=== PATIENT | male | born 1965 | race Caucasian/White ===

== ENCOUNTER 2021-05-20 14:33 | Emergency (ER) | payer MEDICARE, OTHER ==
[~2021-05-20] VITALS: Ht 172.7 cm; Wt 104.5 kg
[~2021-05-20 14:33] MED LIST: ALLO300T PO; ALPR0.5T PO; AMLO-187 PO; ASPI-482 PO; ATORVASTATIN CA80 MG PO; CLOP75TA PO; CRESTOR40 MG PO; DOCU100C28 PO; FISH1CAP PO; GEMF-24 PO; HYDR-2145 PO; INSU100V13 SQ; INSU100V31 SQ; INSU100V9 SQ; LIRA0.6P2 SQ; LOSA100T14 PO; MELA5TAB PO; METF10007 PO; METO-247 PO; MULT-18 PO; OXYC1TAB20 PO; PANT40TA6 PO; SENN1TAB61 PO
--- NOTE | 2021-05-20 15:44 | PHYS DOC ---
Past History Past Medical History: Angina, Anxiety, Arthritis, CAD, Constipation, CVA, Diabetes, High Cholesterol, Heart Disease, Hypertension, DC, Renal Failure, Other Past Surgical History: Appendectomy Additional Past Surgical Histo: RT SIDED KIDNEY TRANSPLANT, AORTIC VALVE REPLACEMENT Alcohol Use: None Drug Use: None Adult General Chief Complaint Chief Complaint: NAUSEA/VOMITING/DIARRHEA HPI HPI Patient is a 55-year-old male who presents with emergency department complaining of nausea vomiting and diarrhea since Thursday. Patient states he thinks he had bad food Thursday, woke up at approximately midnight Thursday night into Thursday with loose watery brown diarrhea spells approximately every 30 minutes until 7 AM. Patient denies seeing blood in his stool, patient reports approximately Thursday around noon he started vomiting, had 3-4 vomiting spells noticing food particles, denies seeing blood in his vomitus. Patient states he took 2 Imodium's Thursday followed by 2 more Thursday evening, has not had any further diarrhea spells nor vomiting spells this morning. Has been eating bananas rice applesauce and toast without return of vomiting. Patient reports he feels some nausea and generalized abdominal discomfort but cannot pinpoint a specific area of abdominal pain. Patient is u nable to articulate a pain number stating that just feels a little uncomfortable now. Patient denies chest pains, shortness of breath, chest or nasal congestion, dizziness, fever or chills, denies throat discomfort, cough, ear pain, headaches, syncopal or near syncopal episodes. Patient reports his chief complaint at this time is weakness. Patient states he is a type II diabetic, history of hypertension, BPH, had a kidney transplant in September 2019 related to end-stage renal disease, was a former hemodialysis patient, has had no problems since his kidney was transplanted. Patient denies other physical complaints or physical concerns. Review of Systems Review of Systems 14 body systems of review of systems have been reviewed. See HPI for pertinent positives and negative responses, otherwise all other systems are negative, nonpertinent or noncontributory. Constitutional: Negative except as outlined in HPI above. Skin: Negative except as outlined in HPI above. Eyes: Negative except as outlined in HPI above. HENT: Negative except as outlined in HPI above. Respiratory: Negative except as outlined in HPI above. Cardiovascular: Negative except as outlined in HPI above. GI: Negative except as outlined in HPI above. : Negative except as outlined in HPI above. Musculoskeletal: Negative except as outlined in HPI above. Integument: Negative except as outlined in HPI above. Neurologic: Negative except as outlined in HPI above. Endocrine: Negative except as outlined in HPI above. Lymphatic: Negative except as outlined in HPI above. Psychiatric: Negative except as outlined in HPI above. Current Medications Current Medications Patient reported current medication list: Vitamin D 2 tabs every morning, carvedilol 25 mg twice daily, pantoprazole 40 mg twice daily, gabapentin 600 mg twice daily, prednisone 5 mg nightly, allopurinol 300 mg nightly, atorvastatin 400 mg 2 tablets nightly, tamsulosin 0.4 mg nightly, losartan 50 mg nightly, alprazolam 0.5 mg nightly and as needed, melatonin 10 mg nightly, Xarelto 20 mg every morning, oxycodone 10 mg 1 tablet up to 3 times daily daily, alprazolam 0.5 mg 1 tablet up to 3 times daily. Allergies Allergies Allergies Coded Allergies Type Severity Reaction Last Updated Verified nitroglycerin Allergy Intermediate Hives 05/20/21 Yes colchicine Adverse Reaction Intermediate Nausea and Vomiting 05/20/21 Yes Physical Exam Physical Exam Constitutional: Well developed, well nourished, no acute distress, non-toxic appearance. 55-year-old male in no apparent distress. HENT: Normocephalic, atraumatic. Oral mucosa pink, moist, oropharynx pink, none rythematous, no deep tissue infectious process appreciated, patient speaking in normal voice tones, no lymphadenopathy of the head or neck appreciated, bilateral TMs within normal limits and intact. Eyes: Conjunctiva normal, no discharge. Neck: Normal range of motion, no stridor. Cardiovascular: No cyanosis appreciated, distal cap refill less than 2 seconds. Heart sounds S1-S2 to auscultation, regular rate and rhythm. Lungs & Thorax: Patient is in no respiratory distress, no audible adventitious lung sounds appreciated. Lung sounds clear to auscultation all lung gallego. Normal work of breathing. Abdomen: Generalized tenderness to palpation all 4 quadrants, hypoactive bowel sounds. No skin discoloration of the abdomen present, no masses no megaly appreciated. Skin: Warm, dry, no erythema, no rash. Back: No tenderness, no deformities. Extremities: No tenderness, no cyanosis, no clubbing, ROM intact, no edema. Neurologic: Alert and oriented X 3, normal motor function, normal sensory function, no focal deficits noted. Psychologic: Affect normal, judgement normal, mood normal. Current Patient Data Vital Signs Vital Signs Date Time Temp Pulse Resp B/P (MAP) Pulse Ox O2 Delivery O2 Flow Rate FiO2 05/20/21 15:01 99.0 75 18 108/66 (80) 100 Room Air EKG EKG [] Radiology/Procedures Radiology/Procedures [] Heart Score C/O Chest Pain: No Risk Factors: Risk Factors: DM, Current or recent (<one month) smoker, HTN, HLP, family history of CAD, obesity. Risk Scores: Risk Factors: DM, Current or recent (<one month) smoker, HTN, HLP, family history of CAD, obesity. Course & Med Decision Making Course & Med Decision Making Pertinent Labs and Imaging studies reviewed. (See chart for details) 55-year-old male, vital signs reviewed, presents emerged from concerning nausea vomiting diarrhea that started Thursday night into Thursday morning. Physical examination concerning for gastroenteritis, patient does have decreased bowel sounds may be likely from p.o. Imodium dosing prior to arrival to the emergency department. Will order CBC, CMP, mag, Phos, IV saline lock, 1 L normal saline, IV Zofran for nausea, patient is a kidney transplant patient, will give IM Bentyl for abdominal discomfort. Urinalysis assay, will reevaluate after period of time. After period of time, patient reports he feels much better, denies nausea or abdominal discomfort at this time, reports he feels okay to go home. Patient's creatinine is 3.5. Patient reports he believes his creatinine is usually 1.5 since kidney transplant. Discussed with patient concerning for acute kidney injury, will call him discussed with his transplant physician at [facility] to review and get further recommendation. Patient is amenable to this planning. Called [facility] on the [facility] and [facility] transport line, discussed patient case and ED work-up with transferring physician Dr. Dent and transplant nephrology specialist Dr. Coker, Dr. Coker recommended patient be transferred to [facility] on the [place] for further evaluation of acute kidney injury, accepting physician will be Dr. Dent. [facility] transfer Director Of [employer] requested rapid Covid testing prior to giving bed assignment at [facility]. Dr. Coker did not recommend any further treatment in the emergency department. Discussed with patient transfer to [facility] for his serum labs concerning for acute kidney injury, patient is amenable to transfer via EMS spool maker transport to [facility] for ongoing evaluation of his kidney problems. Discussed with patient need for rapid Covid testing, this was ordered and drawn, pending at this time. ED planning, will call transport to line with Covid results. Patient's rapid Covid test is negative, EMTALA transfer forms reviewed and signed, ED nurse to nurse report given, patient awaiting ambulance for transfer to [facility] on the [place] in [facility]. While waiting for ambulance transfer, patient reports increasing low back pain. Patient does have history of chronic low back pain and takes OxyContin at home. We will give 4 mg morphine IV. Dragon Disclaimer Dragon Disclaimer This electronic medical record was generated, in whole or in part, using a voice recognition dictation system. Departure Departure: Impression: Primary Impression: ANJALI (acute kidney injury) Additional Impressions: Nausea vomiting and diarrhea Chronic back pain Disposition: 02 SHORT TERM HOSPITAL (Patient transported to [facility], accepting physician ) Referrals: JEROMY RODRIGUEZ (PCP) Problem Qualifiers Additional Impressions: Chronic back pain Back pain location: low back pain Back pain laterality: unspecified Sciatica presence: unspecified whether sciatica present Qualified Codes: M54.50 - Low back pain, unspecified; G89.29 - Other chronic pain YESENIA MARTINI APRN May 20, 2021 15:44
[2021-05-20] MEDS ORDERED: DICYCLOMINE 20 MG/2 ML VIAL. IM ONE (15:45)
[2021-05-20] MEDS ORDERED: ONDANSETRON PF 4 MG/2 ML VIAL. IVP ONE (15:45)
[2021-05-20] MEDS ORDERED: IV NORMAL SALINE 1,000ML 1,000 ML IV ONE (15:45)
[2021-05-20 16:51] LABS: BASO % 0 % (0-3); EOS % 0 % (0-3); HEMATOCRIT 43.6 % (39.0-53.0); HEMOGLOBIN 14.3 g/dL (13.0-17.5); LYMPH # 0.4 x10^3/uL (1.0-4.8); LYMPH % 6 % (24-48); MEAN CORPUSCULAR HEMOGLOBIN 30 pg (25-35); MEAN CORPUSCULAR HGB CONC 33 g/dL (31-37); MEAN CORPUSCULAR VOLUME 91 fL (79-100); MONO # 0.7 x10^3/uL (0.0-1.1); MONO % 10 % (0-9); NEUT % 84 % (31-73); PLATELET COUNT 119 x10^3/uL (140-400); RED BLOOD COUNT 4.81 x10^6/uL (4.30-5.70); RED CELL DISTRIBUTION WIDTH 15.1 % (11.5-14.5); WHITE BLOOD COUNT 7.2 x10^3/uL (4.0-11.0)
[2021-05-20 17:10] LABS: CALCIUM 9.2 mg/dL (8.5-10.1); CREATININE 3.5 mg/dL (0.7-1.3); GFR 18.2; POTASSIUM 4.5 mmol/L (3.5-5.1)
[2021-05-20 17:14] LABS: ALBUMIN 3.8 g/dL (3.4-5.0); MAGNESIUM 1.9 mg/dL (1.8-2.4); PHOSPHORUS 2.9 mg/dL (2.6-4.7); TOTAL BILIRUBIN 0.6 mg/dL (0.2-1.0); TOTAL PROTEIN 7.5 g/dL (6.4-8.2)
[2021-05-20 17:43] LABS: CLARITY,URINE CLEAR; COLOR,URINE YELLOW; GLUCOSE,URINE NEG (NEG)
[2021-05-20 17:44] LABS: BACTERIA,URINE 0 /HPF (0-FEW); HYALINE CASTS, URINE MANY /HPF; NITRITE,URINE NEG (NEG); RBC,URINE 0 /HPF (0-2); SQUAMOUS EPITHELIAL CELL,UR FEW /LPF; UROBILINOGEN,URINE 0.2 mg/dL (0.2 mg/dL); WBC,URINE 0 /HPF (0-4)
[2021-05-20 19:36] LABS: INFLUENZA A PATIENT NEGATIVE (NEGATIVE); INFLUENZA B PATIENT NEGATIVE (NEGATIVE)
[2021-05-20] MEDS ORDERED: MORPHINE SULFATE 4 MG/ML DISP.SYRIN. IV ONE (19:45)
[2021-05-20 21:02] VITALS: BP 117/61
== END 2021-05-20 23:09 | disposition short-term general hospital (02) ==
LOC: ER 14:33
DX: N17.9 Acute kidney failure, unspecified (principal); G89.29 Other chronic pain; M54.59 Other low back pain; F41.9 Anxiety disorder, unspecified; M19.90 Unspecified osteoarthritis, unspecified site; I25.10 Atherosclerotic heart disease of native coronary artery without angina pectoris; I13.10 Hypertensive heart and chronic kidney disease without heart failure, with stage 1 through stage 4 chronic kidney disease, or unspecified chronic kidney disease; E11.22 Type 2 diabetes mellitus with diabetic chronic kidney disease; N18.9 Chronic kidney disease, unspecified; I25.2 Old myocardial infarction; Z20.822 Contact with and (suspected) exposure to COVID-19; Z94.0 Kidney transplant status; Z86.73 Personal history of transient ischemic attack (TIA), and cerebral infarction without residual deficits; Z88.8 Allergy status to other drugs, medicaments and biological substances
CPT/HCPCS: 36415; 80053; 81001; 83735; 84100; 85025; 87428; 96361; 96372; 96374; 96375; 99285; C9803; J0500; J2270; J2405; J7030; U0003